=== PATIENT | male | born 1980 | race Hispanic/Latino ===

== ENCOUNTER 2017-03-11 19:55 | Emergency (ER) | payer OTHER ==
[~2017-03-11] VITALS: Ht 167.6 cm; Wt 120.8 kg
[~2017-03-11 19:55] MED LIST: FLEXERIL PO; MEDDOSEPAK PO; PERCOCET 5/325M1 TAB OR; REGLAN5 MG OR; ULTRAM50 M1 PO
[2017-03-11 21:02] LABS: HEMATOCRIT 40.4 % (39.0-50.0); HEMOGLOBIN 13.8 g/dl (14.0-18.0); IMMATURE GRANULOCYTES 0.5 % (0.0-1.0); MEAN CELL VOLUME 87.4 fL CALC (80.0-100.0); MEAN CORPUSCULAR HGB 29.9 pG CALC (26.0-32.0); MEAN CORPUSCULAR HGB CONC 34.2 g/L CALC (32.0-36.0); NEUT# 12.58 thou/uL (1.82-7.42); RED BLOOD COUNT 4.62 mill/uL (4.70-6.10); RED CELL DISTRI WIDTH 12.6 % (11.5-15.5)
[2017-03-11 21:14] LABS: ALBUMIN 4.2 g/dL (3.2-5.0); ALKALINE PHOSPHATASE 84 u/l (38-126); ANION GAP 18 (6-22 (CALC)); BILIRUBIN, TOTAL 0.7 mg/dL (0.0-1.4); BUN 14 mg/dL (9-20); BUN/CREATININE RATIO 11 (12-20 (CALC)); CALCIUM 9.1 mg/dL (8.4-10.2); CARBON DIOXIDE 25 mmol/l (22-30); CHLORIDE 99 mmol/l (95-108); CREATININE 1.2 mg/dL (0.7-1.3); GFR > 60 ML/MIN (>=60 (CALC)); GFR FOR AFR.AMER. > 60 ML/MIN (>=60 (CALC)); GLUCOSE 242 mg/dL (75-110); SGOT/AST 31 u/l (17-59); SGPT/ALT 50 u/l (21-72); SODIUM 138 mmol/l (137-146); TOTAL PROTEIN 7.4 g/dL (6.3-8.2)
[2017-03-11] MEDS ORDERED: LISINOPRIL5 MG PO (21:21)
[2017-03-11] MEDS ORDERED: METFORMIN500 M2 PO (21:22)
[2017-03-11 22:35] LABS: URINE BILIRUBIN - DIPSTICK NEGATIVE (NEGATIVE); URINE BLOOD DIPSTICK NEGATIVE (NEGATIVE); URINE CLARITY CLEAR; URINE COLOR YELLOW; URINE GLUCOSE - DIPSTICK 500 mg/dL (NEGATIVE); URINE KETONE TRACE mg/dL (NEGATIVE); URINE LEUK ESTERASE NEGATIVE (NEGATIVE); URINE NITRITE - DIPSTICK NEGATIVE (Negative); URINE PH 5.5 (4.5-8.0); URINE PROTEIN - DIPSTICK TRACE mg/dL (NEG-TRACE); URINE SPECIFIC GRAVITY >=1.030; URINE UROBILINOGEN - DIPSTICK 0.2 E.U./dL (0.2)
[2017-03-11] MEDS ORDERED: AMOXICILLIN500 MG PO (22:45)
[2017-03-11 23:05] VITALS: BP 126/74
== END 2017-03-11 22:05 | disposition home or self-care (01) | DRG 153 ==
LOC: ED 19:55
PROVIDERS: Emergency Medicine
DX: J02.0 Streptococcal pharyngitis (principal); E11.9 Type 2 diabetes mellitus without complications; R50.9 Fever, unspecified; R51 Headache; R19.7 Diarrhea, unspecified; R05 Cough; Z79.84 Long term (current) use of oral hypoglycemic drugs

== ENCOUNTER 2017-10-16 15:46 | Observation (INO) | payer OTHER ==
[~2017-10-16] VITALS: Ht 167.6 cm; Wt 118.6 kg
[~2017-10-16 15:46] MED LIST changes: +AMOXICILLIN500 MG PO; +LISINOPRIL5 MG PO; +METFORMIN500 M2 PO
--- NOTE | 2017-10-16 15:56 | NUR ---
PT TO ROOM FOR EXAM
[2017-10-16 16:20] LABS: HEMATOCRIT 42.4 % (39.0-50.0); HEMOGLOBIN 14.4 g/dl (14.0-18.0); IMMATURE GRANULOCYTES 0.3 % (0.0-1.0); MEAN CELL VOLUME 86.9 fL CALC (80.0-100.0); MEAN CORPUSCULAR HGB 29.5 pG CALC (26.0-32.0); NEUT# 5.7 thou/uL (1.82-7.42); RED BLOOD COUNT 4.88 mill/uL (4.70-6.10); RED CELL DISTRI WIDTH 12.5 % (11.5-15.5)
--- NOTE | 2017-10-16 16:20 | NUR ---
MEDICATED WITH 324 MG PO. TOLERATED WELL, WILL CONTINUE TO MONITOR.
[2017-10-16 16:45] LABS: ANION GAP 20 (6-22 (CALC)); BUN 21 mg/dL (9-20); BUN/CREATININE RATIO 25 (12-20 (CALC)); CARBON DIOXIDE 22 mmol/l (22-30); CHLORIDE 104 mmol/l (95-108); CREATININE 0.8 mg/dL (0.7-1.3); GFR > 60 ML/MIN (>=60 (CALC)); GFR FOR AFR.AMER. > 60 ML/MIN (>=60 (CALC)); POTASSIUM 4.2 mmol/l (3.5-5.1); SODIUM 141 mmol/l (137-146)
[2017-10-16] MEDS ORDERED: ATORVASTATIN CA40 MG PO (17:02)
--- NOTE | 2017-10-16 17:03 | NUR ---
PATIENT REPORTS CHEST PAIN LEVEL 2/10 AT THIS TIME. CALL LIGHT WITHIN REACH WILL CONTINUE TO MONITOR.
--- NOTE | 2017-10-16 17:09 | NUR ---
MD AT BEDSIDE TO DISCUSS RESULTS.
--- NOTE | 2017-10-16 17:25 | NUR ---
SBAR PRINTED TO FLOOR
--- NOTE | 2017-10-16 17:59 | NUR ---
REPORT GIVEN TO ROSS VAIL.
--- NOTE | 2017-10-16 18:18 | NUR ---
PATIENT TRANSPORTED TO [facility] WITH TELE VIA WHEELCHAIR. BEDSIDE REPORT GIVEN TO ROSS VAIL. CARE RELINQUISHED.
[2017-10-16 18:20] VITALS: BP 129/83
--- NOTE | 2017-10-16 18:20 | NUR ---
PT CAME FROM ER VIA WC BY ROSS HERNANDEZ. OBTAIN PT WT AND THEN PT WENT TO SIT IN THE SIDE OF THE BED. ORIENTED PT TO CALL LIGHT AND SAFETY PRECAUTIONS REINFORCED. FAMILY MEMBER IN ROOM.
--- NOTE | 2017-10-16 19:00 | NUR ---
RECEIVED CHANGE OF SHIFT REOIRT FROM ROSS VAIL. PATIENT ALERT AND ORIENTED AND LYING IN BED. FAMILY AT BEDSIDE. REPORTS PAIN ONLY IN MOVEMENT. WILL CONTINUE TO MONITOR.
[2017-10-16 19:33] LABS: URINE BILIRUBIN - DIPSTICK NEGATIVE (NEGATIVE); URINE BLOOD DIPSTICK NEGATIVE (NEGATIVE); URINE COLOR YELLOW; URINE GLUCOSE - DIPSTICK NEGATIVE (NEGATIVE); URINE KETONE NEGATIVE (NEGATIVE); URINE LEUK ESTERASE NEGATIVE (Negative); URINE NITRITE - DIPSTICK NEGATIVE (Negative); URINE PH 5.5 (4.5-8.0); URINE PROTEIN - DIPSTICK NEGATIVE (NEG-TRACE); URINE SPECIFIC GRAVITY 1.025; URINE UROBILINOGEN - DIPSTICK 0.2 E.U./dL (0.2)
[2017-10-16 19:46] LABS: URINE CLARITY CLEAR
[2017-10-17] VITALS: BP 139/85
--- NOTE | 2017-10-17 | NUR ---
PATIENT RESTING QUIETLY AND APPEARS NOT TO BE IN ANY APPARENT ACUTE DISTRESS AT THIS TIME. DENIES CHEST PAIN. WILL CONTINUE TO MONITOR.
[2017-10-17 04:00] VITALS: BP 119/80
--- NOTE | 2017-10-17 04:00 | NUR ---
PATIENT RESTED WELL DURING THE NIGHT. NO VOICED COMPLAINTS. NO APPARENT ACUTE CHANGES NOTED IN PT'S CONDITION.
[2017-10-17 07:40] VITALS: BP 144/92
--- NOTE | 2017-10-17 07:40 | NUR ---
PT HAS BEEN RESTING IN BED WITH NO DISTRESS NOTED. IV SITE IS FREE FROM REDNESS OR EDEMA. HR IS REG, PULSES ARE STRONG X4,ABD IS SOFT WITH ACTIVE BS. TELE MONITOR IN PLACE. CONTINUE TO OSBERVE AND MONITOR
--- NOTE | 2017-10-17 12:03 | NUR ---
PT IS RELAXING IN BED WITH MO DISTRESS NOTED. IV SITE IS FREE FROM REDNESS OR EDEMA. CONTINUE TO OSBERE AND MONITOR,
[2017-10-17] MEDS ORDERED: ASPIRIN ADULT L81 M2 PO (16:01)
[2017-10-17 16:32] VITALS: BP 126/82
--- NOTE | 2017-10-17 17:15 | NUR ---
PT RECEIVED DISCHARGE INSTRUCTIONS AND VERBALIZED UNDERSTANDING. IV SITE IS FREE FROM REDNESS OR EDEMA. HAS BEEN DISCONTINEUD CATHETER INTACT. TELE MONITOR HAS BEEN TAKEN OFF PT. CONTINUE TO OSBERVE AND MONITOR.
--- NOTE | 2017-10-17 18:19 | NUR ---
PT AMBUALTED OFF THE UNIT. TO GO HOME ALL PAPERS AND BELONGINGS WENT WITH PT.
== END 2017-10-17 18:11 | disposition home or self-care (01) | DRG 313 ==
LOC: ED 15:46 → ED-I 17:14 → ED 18:02 → MS2 18:03
PROVIDERS: Family Medicine; ADMIT Internal Medicine; ATTEND Internal Medicine
DX: R07.89 Other chest pain (principal); Z68.41 Body mass index [BMI] 40.0-44.9, adult; E11.9 Type 2 diabetes mellitus without complications; I10 Essential (primary) hypertension; E66.9 Obesity, unspecified; E78.5 Hyperlipidemia, unspecified; Z79.84 Long term (current) use of oral hypoglycemic drugs
CPT/HCPCS: G0378

== ENCOUNTER 2018-11-15 12:21 | Emergency (ER) | payer BC ==
[~2018-11-15] VITALS: Ht 167.6 cm; Wt 118.0 kg
[~2018-11-15 12:21] MED LIST changes: +ASPIRIN ADULT L81 M2 PO; +ATORVASTATIN CA40 MG PO
[2018-11-15 12:32] VITALS: BP 154/77
[2018-11-15] MEDS ORDERED: PREDNISONE50 MG PO (14:26)
== END 2018-11-15 14:55 | disposition home or self-care (01) | DRG 563 ==
LOC: ED 12:21
DX: S39.012A Strain of muscle, fascia and tendon of lower back, initial encounter (principal); M54.5 Low back pain; M51.36 Other intervertebral disc degeneration, lumbar region; X50.3XXA Overexertion from repetitive movements, initial encounter; Y93.H2 Activity, gardening and landscaping; Y92.007 Garden or yard of unspecified non-institutional (private) residence as the place of occurrence of the external cause

== ENCOUNTER 2018-11-17 08:20 | Emergency (ER) | payer BC ==
[~2018-11-17] VITALS: Ht 167.6 cm; Wt 125.0 kg
[~2018-11-17 08:20] MED LIST changes: +PREDNISONE50 MG PO
[2018-11-17 08:59] LABS: URINE BILIRUBIN - DIPSTICK NEGATIVE (NEGATIVE); URINE BLOOD DIPSTICK NEGATIVE (NEGATIVE); URINE COLOR YELLOW; URINE GLUCOSE - DIPSTICK >=1000 mg/dL (NEGATIVE); URINE KETONE TRACE mg/dL (NEGATIVE); URINE LEUK ESTERASE NEGATIVE (NEGATIVE); URINE NITRITE - DIPSTICK NEGATIVE (Negative); URINE PH 5.5 (4.5-8.0); URINE PROTEIN - DIPSTICK NEGATIVE (NEG-TRACE); URINE UROBILINOGEN - DIPSTICK 0.2 E.U./dL (0.2)
[2018-11-17 09:46] LABS: HEMATOCRIT 40.9 % (39.0-50.0); HEMOGLOBIN 13.8 g/dl (14.0-18.0); MEAN CORPUSCULAR HGB 29.4 pG CALC (26.0-32.0); MEAN CORPUSCULAR HGB CONC 33.7 g/L CALC (32.0-36.0); NEUT# 12.02 thou/uL (1.82-7.42); RED BLOOD COUNT 4.7 mill/uL (4.70-6.10); RED CELL DISTRI WIDTH 12.8 % (11.5-15.5)
[2018-11-17] MEDS ORDERED: FLEXERIL PO (10:18)
[2018-11-17] MEDS ORDERED: ULTRAM50 M1 PO (10:18)
[2018-11-17 10:28] LABS: ALBUMIN 4.4 g/dL (3.2-5.0); ALKALINE PHOSPHATASE 80 u/l (38-126); ANION GAP 20 (6-22 (CALC)); BILIRUBIN, TOTAL 0.7 mg/dL (0.0-1.4); BUN 23 mg/dL (9-20); BUN/CREATININE RATIO 29 (12-20 (CALC)); CARBON DIOXIDE 19 mmol/l (22-30); CHLORIDE 104 mmol/l (95-108); CREATININE 0.8 mg/dL (0.7-1.3); GFR > 60 ML/MIN (>=60 (CALC)); GFR FOR AFR.AMER. > 60 ML/MIN (>=60 (CALC)); POTASSIUM 4.6 mmol/l (3.5-5.1); SGOT/AST 23 u/l (17-59); SODIUM 138 mmol/l (137-146); TOTAL PROTEIN 7.6 g/dL (6.3-8.2)
[2018-11-17 10:34] VITALS: BP 140/85
== END 2018-11-17 10:43 | disposition home or self-care (01) | DRG 552 ==
LOC: ED 08:20
PROVIDERS: Emergency Medicine
DX: S33.5XXA Sprain of ligaments of lumbar spine, initial encounter (principal); I10 Essential (primary) hypertension; E11.9 Type 2 diabetes mellitus without complications; X50.9XXA Other and unspecified overexertion or strenuous movements or postures, initial encounter; Y93.H9 Activity, other involving exterior property and land maintenance, building and construction; Y92.007 Garden or yard of unspecified non-institutional (private) residence as the place of occurrence of the external cause

== ENCOUNTER 2019-10-13 | Emergency (ER) | payer BC ==
[2019-10-13] MEDS ORDERED: HUMULIN R500 UNIT/M IN (07:33)
[2019-10-13] MEDS ORDERED: AMOXICILLIN500 M2 PO (08:18)
== END 2019-10-13 08:33 | disposition home or self-care (01) | DRG 153 ==
DX: J02.0 Streptococcal pharyngitis (principal); I10 Essential (primary) hypertension; E11.9 Type 2 diabetes mellitus without complications; Z79.4 Long term (current) use of insulin

== ENCOUNTER 2020-01-02 01:56 | Emergency (ER) | payer BC ==
[~2020-01-02 01:56] MED LIST changes: +AMOXICILLIN500 M2 PO; +HUMULIN R500 UNIT/M IN
[2020-01-02] MEDS ORDERED: LEVEMIR100 UNIT/M SC (02:18)
[2020-01-02] MEDS ORDERED: MOTRIN800 MG PO ×2 (02:22)
[2020-01-02] MEDS ORDERED: VALTREX1 GM PO ×2 (02:22)
[2020-01-02] MEDS ORDERED: TRAMADOL HCL50 MG PO (02:22)
[2020-01-02 02:45] VITALS: BP 140/86
== END 2020-01-02 02:45 | disposition home or self-care (01) | DRG 596 ==
LOC: ED 01:56
DX: B02.9 Zoster without complications (principal); L70.0 Acne vulgaris; I10 Essential (primary) hypertension; E11.9 Type 2 diabetes mellitus without complications; Z79.4 Long term (current) use of insulin

== ENCOUNTER 2020-03-19 20:52 | Emergency (ER) | payer BC ==
[~2020-03-19] VITALS: Ht 167.6 cm; Wt 111.0 kg
[~2020-03-19 20:52] MED LIST changes: +LEVEMIR100 UNIT/M SC; +MOTRIN800 MG PO; +TRAMADOL HCL50 MG PO; +VALTREX1 GM PO
[2020-03-19] MEDS ORDERED: TRAMADOL HYDROC50 MG PO (21:11)
[2020-03-19] MEDS ORDERED: TORADOL PO (21:11)
[2020-03-19] MEDS ORDERED: LEVEMIR FL100 UNIT/M SC ×2 (21:13)
[2020-03-19 21:22] VITALS: BP 166/98
== END 2020-03-19 21:22 | disposition home or self-care (01) | DRG 563 ==
LOC: ED 20:52
DX: S39.012A Strain of muscle, fascia and tendon of lower back, initial encounter (principal); I10 Essential (primary) hypertension; E11.9 Type 2 diabetes mellitus without complications; X58.XXXA Exposure to other specified factors, initial encounter; Z79.4 Long term (current) use of insulin

== ENCOUNTER 2020-09-10 20:31 | Emergency (ER) | payer BC ==
[~2020-09-10] VITALS: Ht 167.6 cm; Wt 109.0 kg
[~2020-09-10 20:31] MED LIST changes: +LEVEMIR FL100 UNIT/M SC; +TORADOL PO; +TRAMADOL HYDROC50 MG PO
[2020-09-10] MEDS ORDERED: FLUCONAZOLE150 MG PO (21:14)
[2020-09-10] MEDS ORDERED: DICLOFENAC75 MG PO (21:15)
[2020-09-10] MEDS ORDERED: METRONIDAZOLE500 MG PO (21:15)
[2020-09-10] MEDS ORDERED: NYSTATIN100000 UN1 TOP (21:17)
[2020-09-10 22:13] LABS: URINE BILIRUBIN - DIPSTICK NEGATIVE (NEGATIVE); URINE BLOOD DIPSTICK LARGE (NEGATIVE); URINE COLOR YELLOW; URINE GLUCOSE - DIPSTICK >=1000 mg/dL (NEGATIVE); URINE KETONE NEGATIVE (NEGATIVE); URINE LEUK ESTERASE TRACE (NEGATIVE); URINE NITRITE - DIPSTICK NEGATIVE (Negative); URINE PROTEIN - DIPSTICK 100 mg/dL (NEG-TRACE); URINE SPECIFIC GRAVITY >=1.030; URINE UROBILINOGEN - DIPSTICK 0.2 E.U./dL (0.2)
[2020-09-10 22:20] LABS: URINE WBC 50-100 WBC/hpf (0-5)
[2020-09-10] MEDS ORDERED: ULTRAM50 MG PO (22:38)
[2020-09-10] MEDS ORDERED: PYRIDIUM200 MG PO (22:38)
[2020-09-10] MEDS ORDERED: AMOXICILLIN500 MG PO (22:38)
[2020-09-10] MEDS ORDERED: FAMCICLOVIR500 MG PO (22:38)
[2020-09-10 23:04] VITALS: BP 142/80
== END 2020-09-10 23:03 | disposition home or self-care (01) | DRG 690 ==
LOC: ED 20:31
DX: N39.0 Urinary tract infection, site not specified (principal); A60.01 Herpesviral infection of penis; E11.9 Type 2 diabetes mellitus without complications; I10 Essential (primary) hypertension; Z79.4 Long term (current) use of insulin

== ENCOUNTER 2020-09-25 04:12 | Emergency (ER) | payer BC ==
[~2020-09-25] VITALS: Ht 167.6 cm; Wt 109.0 kg
[~2020-09-25 04:12] MED LIST changes: +DICLOFENAC75 MG PO; +FAMCICLOVIR500 MG PO; +FLUCONAZOLE150 MG PO; +METRONIDAZOLE500 MG PO; +NYSTATIN100000 UN1 TOP; +PYRIDIUM200 MG PO; +ULTRAM50 MG PO
[2020-09-25] MEDS ORDERED: BP MED (04:43)
[2020-09-25] MEDS ORDERED: CHOLESTEROL MED (04:43)
[2020-09-25] MEDS ORDERED: TORADOL PO (04:46)
[2020-09-25] MEDS ORDERED: TRAMADOL HYDROC50 MG PO (04:46)
[2020-09-25 05:12] VITALS: BP 138/70
== END 2020-09-25 05:12 | disposition home or self-care (01) | DRG 563 ==
LOC: ED 04:12
DX: S39.012A Strain of muscle, fascia and tendon of lower back, initial encounter (principal); I10 Essential (primary) hypertension; E11.9 Type 2 diabetes mellitus without complications; X50.0XXA Overexertion from strenuous movement or load, initial encounter; Y93.E9 Activity, other interior property and clothing maintenance; Y92.009 Unspecified place in unspecified non-institutional (private) residence as the place of occurrence of the external cause; Z79.4 Long term (current) use of insulin

== ENCOUNTER 2022-07-10 22:47 | Emergency (ER) | payer BC ==
[~2022-07-10] VITALS: Ht 167.6 cm; Wt 109.0 kg
[~2022-07-10 22:47] MED LIST changes: +BP MED; +CHOLESTEROL MED
[2022-07-11] MEDS ORDERED: VOLTAREN75 MG PO (00:20)
[2022-07-11 00:46] VITALS: BP 140/86
[2022-07-11 00:49] VITALS: BP 140/86
== END 2022-07-11 00:57 | disposition home or self-care (01) | DRG 563 ==
LOC: ED 22:47
DX: S39.012A Strain of muscle, fascia and tendon of lower back, initial encounter (principal); X50.1XXA Overexertion from prolonged static or awkward postures, initial encounter; I10 Essential (primary) hypertension; E11.9 Type 2 diabetes mellitus without complications; Z79.84 Long term (current) use of oral hypoglycemic drugs